=== PATIENT | female | born 1970 | race Caucasian/White ===

== ENCOUNTER 2016-12-03 09:39 | Emergency (ER) | payer MEDICARE, MEDICAID ==
[2016-12-03] MEDS ORDERED: RABIES VACCINE 2.5 UNIT SYRINGE IM ONE ×2 (10:35→10:49)
== END 2016-12-03 11:22 | disposition home or self-care (01) ==
DX: Z23 Encounter for immunization (principal); S60.871D Other superficial bite of right wrist, subsequent encounter; W55.51XD Bitten by raccoon, subsequent encounter

== ENCOUNTER 2016-12-10 22:02 | Emergency (ER) | payer MEDICARE, MEDICAID ==
[2016-12-10 22:19] VITALS: BP 132/85
--- NOTE | 2016-12-10 22:44 | ED Physician Documentation ---
History of Present Illness - Stated complaint Stated Complaint: RABIES SHOT - Chief complaint Chief Complaint: General - History obtained from History obtained from: Patient - History of Present Illness Timing: Other (Bitten by a raccoon on November 25. Seen at [facility] for shots one and 2, did have immunoglobulin with the first. here for the last of the series. 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 - Present Medications Home Medications: Ambulatory Orders Medication Instructions Recorded Confirmed Bupropion HCl [Wellbutrin Sr] 200 mg ORAL BID 12/03/16 12/03/16 Gabapentin 300 mg ORAL TID 12/03/16 12/03/16 Omeprazole 0 mg ORAL DAILY 12/03/16 12/03/16 Ondansetron HCl [Zofran] 4 mg ORAL Q6H PRN 12/03/16 12/03/16 Oxycodone HCl 10 mg ORAL Q4H PRN 12/03/16 12/03/16 Pramipexole Di-HCl [Mirapex] 1 mg ORAL DAILY 12/03/16 12/03/16 Pseudoephedrine [Sudafed] 0 mg ORAL DAILY PRN 12/03/16 12/03/16 Topiramate [Topamax] 400 mg ORAL DAILY 12/03/16 12/03/16 - Allergies Allergies/Adverse Reactions: Allergies Allergy/AdvReac Type Severity Reaction Status Date / Time codeine Allergy Itching Verified 12/03/16 09:46 - Social History Does the pt smoke?: Yes Smoking Status: Current every day smoker Does the pt drink ETOH?: Yes - Immunizations Immunizations are current?: Yes PD ED PE NORMAL - Vitals Vital signs reviewed: Yes - General General: Alert and oriented X 3, No acute distress - Derm Derm: Normal color, Warm and dry - Neuro Neuro: Alert and oriented X 3, Normal speech - Psych Psych: Normal mood, Normal affect Results - Vitals Vitals: Vital Signs - 24 hr 12/10/16 22:11 Temperature 36.7 C Heart Rate 80 Respiratory 22 Rate Blood Pressure 132/85 H O2 Saturation 98 Oxygen O2 Source Room air Departure - Departure Disposition: 01 Home, Self Care Clinical Impression: Encounter for repeat administration of rabies vaccination Condition: Good Record reviewed to determine appropriate education?: Yes Comments: Your blood pressure was elevated today on check in to the emergency department. This does not mean that you have hypertension, it is a common phenomenon to check into the emergency department and have elevated blood pressure. I recommend that you see your primary care physician within the week to have it rechecked when you're feeling better.
[2016-12-10] MEDS ORDERED: RABIES VACCINE 2.5 UNIT SYRINGE IM ONE (22:46)
[2016-12-10] MEDS: RABIES VACCINE 2.5 UNIT SYRINGE IM ONE (22:54)
== END 2016-12-10 23:03 | disposition home or self-care (01) ==
LOC: EDBD → ED 22:02
DX: Z23 Encounter for immunization (principal); Z20.3 Contact with and (suspected) exposure to rabies; M19.90 Unspecified osteoarthritis, unspecified site; F17.200 Nicotine dependence, unspecified, uncomplicated
CPT/HCPCS: 90471; 96372; 99283

== ENCOUNTER 2017-06-18 16:54 | Emergency (ER) | payer MEDICARE, MEDICAID ==
[2017-06-18 17:06] VITALS: BP 115/77
--- NOTE | 2017-06-18 17:06 | ED Physician Documentation ---
PD HPI SKIN - Stated complaint Stated Complaint: FEMALE - Chief complaint Chief Complaint: General - History obtained from History obtained from: Patient - History of Present Illness Timing - onset: Yesterday Timing - duration: Days (1) Timing - details: Abrupt onset Location: Other (left lateral breast just posterior to areola, and she said she had mild green nipple discharge yesterday.) Quality / character: Painful, Discolored (red), Swelling. No: Draining Associated symptoms: Fever (subjective), Myalgias. No: N/V/D Similar symptoms before: Has not had sx before Recently seen: Other (outpatient MRI of right shoulder several days ago, during which she says her left arm was against her breast in order to fit into machine well.) Review of Systems Constitutional: reports: Fever (subjective today), Chills, Myalgias Nose: denies: Congestion Throat: denies: Sore throat Respiratory: denies: Cough GI: denies: Nausea, Vomiting, Diarrhea Skin: reports: Lesions (she has had a few small skin sores the past week or so, resolving on their own, with currently one on wrist and neck.) PD PAST MEDICAL HISTORY - Past Medical History Cardiovascular: None Respiratory: None Endocrine/Autoimmune: None Musculoskeletal: Osteoarthritis - Past Surgical History Past Surgical History: Yes 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, 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 - Present Medications Home Medications: Ambulatory Orders Medication Instructions Recorded Confirmed Bupropion HCl [Wellbutrin Sr] 200 mg ORAL BID 12/03/16 06/18/17 Gabapentin 300 mg ORAL TID 12/03/16 06/18/17 Omeprazole 0 mg ORAL DAILY 12/03/16 06/18/17 Oxycodone HCl 10 mg ORAL Q4H PRN 12/03/16 06/18/17 Pramipexole Di-HCl [Mirapex] 1 mg ORAL DAILY 12/03/16 06/18/17 Pseudoephedrine [Sudafed] 0 mg ORAL DAILY PRN 12/03/16 06/18/17 Topiramate [Topamax] 400 mg ORAL DAILY 12/03/16 06/18/17 Amphetamine Sulfate [Evekeo] 20 mg PO BID 06/18/17 06/18/17 Aspirin 81 mg PO DAILY 06/18/17 06/18/17 Naproxen 375 mg PO BID #15 tablet 06/18/17 Sulfamethox/Trimeth 800/160 1 each PO BID #14 tablet 06/18/17 [Bactrim Ds 800/160] oxyCODONE [Roxicodone] 5 mg PO Q6H PRN #15 tablet 06/18/17 - Allergies Allergies/Adverse Reactions: Allergies Allergy/AdvReac Type Severity Reaction Status Date / Time codeine Allergy Itching Verified 12/03/16 09:46 - Social History Does the pt smoke?: Yes Smoking Status: Current every day smoker Does the pt drink ETOH?: Yes - Immunizations Immunizations are current?: Yes PD ED PE NORMAL - Vitals Vital signs reviewed: Yes - General General: Alert and oriented X 3, Well developed/nourished - HEENT HEENT: Pharynx benign - Neck Neck: Supple, no meningeal sign, No adenopathy - Cardiac Cardiac: RRR, No murmur - Respiratory Respiratory: Clear bilaterally - Abdomen Abdomen: Soft, Non tender - Derm Derm: Normal color, Warm and dry, Other (left lateral breast with area of redness and firmness, tender, but no fluctuance and bedside U/S did not show any fluid collection. No nipple discharge expressed with some palpation. ) Results - Vitals Vitals: Vital Signs - 24 hr 06/18/17 17:00 Temperature 36.7 C Heart Rate 90 Respiratory 18 Rate Blood Pressure 115/77 O2 Saturation 98 Oxygen O2 Source Room air PD MEDICAL DECISION MAKING - ED course Complexity details: considered differential (mastitis, not , but had had arm pressed against breast during recent MRI. US bedside does not show abscess. She has some other small skin abscesses (superficial 1/2 cm) on arm and face, so would target treatment of the mastitis as more likely staph.), d/w patient Departure - Departure Disposition: Home, Self Care Clinical Impression: Mastitis, left, acute Condition: Stable Record reviewed to determine appropriate education?: Yes Instructions: ED Breast Infec Follow-Up: Dave Hickman DO [Primary Care Provider] - Prescriptions: Sulfamethox/Trimeth 800/160 [Bactrim Ds 800/160] 1 each PO BID #14 tablet Naproxen 375 mg PO BID #15 tablet oxyCODONE [Roxicodone] 5 mg PO Q6H PRN #15 tablet PRN Reason: Pain Comments: Warm towels or compresses to the infected area a few times daily. Naproxen twice daily for a week for inflammation. Bactrim twice daily for a week for the infection. Add Tylenol or Percocet as needed for pains. Recheck if not improving well over the next 2-3 days. Discharge Date/Time: 06/18/17 17:52
[2017-06-18] MEDS ORDERED: SULFAMETH/TRIMETH DS 800/160 MG TABLET PO STA (17:29)
[2017-06-18] MEDS ORDERED: oxyCOD/ACETAMIN 5 MG/325 MG TABLET PO STA (17:29)
[2017-06-18] MEDS ORDERED: oxyCOD/ACETAMIN 5 MG/325 MG TABLET PO ONE (17:38)
[2017-06-18] MEDS ORDERED: SULFAMETH/TRIMETH DS 800/160 MG TABLET PO ONE (17:39)
== END 2017-06-18 17:52 | disposition home or self-care (01) ==
LOC: ED 16:54 → EDBD 16:54 → ED 17:52
DX: N61.0 Mastitis without abscess (principal); M19.90 Unspecified osteoarthritis, unspecified site; F17.200 Nicotine dependence, unspecified, uncomplicated
CPT/HCPCS: 99283; A9270

== ENCOUNTER 2017-06-22 15:01 | Emergency (ER) | payer MEDICARE, MEDICAID ==
[2017-06-22] MEDS ORDERED: IBUPROFEN 400 MG TABLET PO STA (16:18)
[2017-06-22] MEDS ORDERED: oxyCOD/ACETAMIN 5 MG/325 MG TABLET PO STA (16:18)
[2017-06-22] MEDS ORDERED: IBUPROFEN 400 MG TABLET PO ONE (16:28)
[2017-06-22] MEDS ORDERED: oxyCOD/ACETAMIN 5 MG/325 MG TABLET PO ONE (16:35)
[2017-06-22] MEDS ORDERED: CEPHALEXIN 250 MG CAPSULE PO STA (16:36)
--- NOTE | 2017-06-22 16:38 | ED Physician Documentation ---
History of Present Illness - Stated complaint Stated Complaint: L BREAST PX - Chief complaint Chief Complaint: General - Additonal information Additional information: hx from pt L breast redness and pain and mass for about 6 days seen in ER for same, bedside sono showed no abscess, rx bactrim as she had other small skin sores suggesting staph not better, redness and pain have increased has not seen PMD for same - has appy 07/06 Dr Hickman + fever last mammo Jun 2016 reportedly nl per pt Review of Systems Constitutional: reports: Fever Cardiac: denies: Chest pain / pressure Respiratory: denies: Dyspnea Endocrine: denies: Easy bruising / bleeding Immunocompromised: denies: Immunocompromised PD PAST MEDICAL HISTORY - Past Medical History Cardiovascular: None Respiratory: None Endocrine/Autoimmune: None Musculoskeletal: Osteoarthritis - Past Surgical History Past Surgical History: Yes 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, 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 - Present Medications Home Medications: Ambulatory Orders Medication Instructions Recorded Confirmed Bupropion HCl [Wellbutrin Sr] 200 mg ORAL BID 12/03/16 06/22/17 Gabapentin 300 mg ORAL TID 12/03/16 06/22/17 Omeprazole 0 mg ORAL DAILY 12/03/16 06/22/17 Pramipexole Di-HCl [Mirapex] 1 mg ORAL DAILY 12/03/16 06/22/17 Pseudoephedrine [Sudafed] 0 mg ORAL DAILY PRN 12/03/16 06/22/17 Topiramate [Topamax] 400 mg ORAL DAILY 12/03/16 06/22/17 Amphetamine Sulfate [Evekeo] 20 mg PO BID 06/18/17 06/22/17 Aspirin 81 mg PO DAILY 06/18/17 06/22/17 Naproxen 375 mg PO BID #15 tablet 06/18/17 06/22/17 Sulfamethox/Trimeth 800/160 1 each PO BID #14 tablet 06/18/17 06/22/17 [Bactrim Ds 800/160] Cephalexin [Keflex] 500 mg PO Q6H #28 capsule 06/22/17 Ibuprofen [Motrin] 400 mg PO Q6H PRN #30 tablet 06/22/17 Oxycodone HCl/Acetaminophen 1 each PO Q6HR PRN #10 tablet 06/22/17 [Percocet 5-325 mg Tablet] - Allergies Allergies/Adverse Reactions: Allergies Allergy/AdvReac Type Severity Reaction Status Date / Time codeine Allergy Itching Verified 12/03/16 09:46 - Social History Does the pt smoke?: Yes Smoking Status: Current every day smoker Does the pt drink ETOH?: Yes - Immunizations Immunizations are current?: Yes PD ED PE NORMAL - Vitals Vital signs reviewed: Yes - Neck Neck: Supple, no meningeal sign - Cardiac Cardiac: RRR - Respiratory Respiratory: No respiratory distress, Clear bilaterally - Free text exam Free text exam: L breast with mass apporx 2 oclock smooth firm tender somehwat mobile approx 2 cm diamteer, marked erythema to lateral aspect of breast, no dc, no sig axillary adenopathy Results - Vitals Vitals: Vital Signs - 24 hr 06/22/17 06/22/17 06/22/17 15:06 16:32 18:16 Temperature 36.8 C Heart Rate 76 70 65 Respiratory 20 17 17 Rate Blood Pressure 119/79 108/62 123/67 O2 Saturation 97 99 95 Oxygen O2 Source Room air - Rads (name of study) breast sono, focused Radiology: See rad report (no abscess) Departure - Departure Disposition: Home, Self Care Clinical Impression: Mastitis Condition: Good Instructions: ED Breast Infec Follow-Up: TAMEKA MONIQUE MD [Provider Admit Priv/Credential] - Prescriptions: Oxycodone HCl/Acetaminophen [Percocet 5-325 mg Tablet] 1 each PO Q6HR PRN #10 tablet PRN Reason: Severe Pain Cephalexin [Keflex] 500 mg PO Q6H #28 capsule Ibuprofen [Motrin] 400 mg PO Q6H PRN #30 tablet PRN Reason: Pain Comments: The ultrasound did not show an abscess You will need to get a mammogram and/or MRI to better address the mass - I have referred you to one of our surgeons for further evaluation of the breast mass Add the antibiotic keflex to the bactrim you are already on - be sure to take a probiotic to prevent diarrhea Motrin for pain, percocet only for severe pain Follow up with your PMD for a recheck Monday If worse over the weekend (more redness or fevers) return to the ER because you may need to be admitted for IV antibiotics Forms: Activity restrictions
[2017-06-22 18:18] VITALS: BP 123/67
--- NOTE | 2017-06-22 18:52 | Ultrasound Preliminary Report ---
Exam: US Breast Unilateral Limited IMPRESSION: Negative study. This limited breast ultrasound was tailored to address the acute clinical issue. Recommend diagnostic follow-up at a designated FDA/SA certified breast imaging facility for more detailed and complete evaluation. [facility] SITE ID: [id number]
--- NOTE | 2017-06-22 18:54 | Ultrasound Report ---
EXAM: Limited Breast Ultrasound EXAM DATE: 06/22/2017 06:15 PM CLINICAL HISTORY: L breast erythema and mass ? abscess. COMPARISON: None. TECHNIQUE: Targeted ultrasound was performed of the left breast in the area of clinical concern at 3 o'clock and 5-15 cm distance from the nipple. Color Doppler was employed as appropriate. FINDINGS: Normal-appearing lymph node at 15 cm. No suspicious fluid collection or mass. No significan tly increased vascularity. IMPRESSION: Negative study. This limited breast ultrasound was tailored to address the acute clinical issue. Recommend diagnostic follow-up at a designated FDA/MQSA certified breast imaging facility for more detailed and complete evaluation. [facility] Referring Provider Line: [phone] SITE ID: [id number]
== END 2017-06-22 18:35 | disposition home or self-care (01) ==
LOC: ED 15:01
DX: N61.0 Mastitis without abscess (principal); F17.200 Nicotine dependence, unspecified, uncomplicated; Z79.82 Long term (current) use of aspirin
CPT/HCPCS: 76642; 99283; A9270

== ENCOUNTER 2017-06-26 22:18 | Emergency (ER) | payer MEDICARE, MEDICAID ==
[2017-06-26] MEDS ORDERED: BUFFERED LIDOCAINE 10 ML SYRINGE ONE (22:52)
[2017-06-26] MEDS ORDERED: IBUPROFEN 800 MG TABLET PO STA (23:06)
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
[2017-06-26] MEDS ORDERED: IBUPROFEN 800 MG TABLET PO ONE (23:13)
[2017-06-26 23:32] VITALS: BP 113/71
== END 2017-06-26 23:26 | disposition home or self-care (01) ==
LOC: ED 22:18
DX: S91.312A Laceration without foreign body, left foot, initial encounter (principal); W26.9XXA Contact with unspecified sharp object(s), initial encounter; M19.90 Unspecified osteoarthritis, unspecified site; F17.200 Nicotine dependence, unspecified, uncomplicated
CPT/HCPCS: 12002; 99283; A9270

== ENCOUNTER 2017-08-09 16:58 | Outpatient (CLI) | payer MEDICARE, MEDICAID ==
--- NOTE | 2017-08-10 09:32 | XRAY Report ---
THREE VIEW LEFT MIDDLE FINGER: 08/09/2017 CLINICAL INDICATION: Deformity. FINDINGS: AP, lateral, and oblique views of the left middle finger demonstrate lateral deviation of the distal phalanx, likely related to a remote fracture of the middle phalanx and angulation of the a rticular surface. There is no evidence of acute fracture or dislocation. Mild osteoarthritic changes are present. IMPRESSION: MILD ULNAR DEVIATION OF THE DISTAL PHALANX OF THE LEFT MIDDLE FINGER, LIKELY RELATED TO A REMOTE, HEALED FRACTURE OF THE MIDDLE PHALANX WITH ANGULATION OF THE ARTICULAR SURFACE. JOB #: [id number] EXT JOB #:[id number]
--- NOTE | 2017-08-10 09:34 | XRAY Report ---
TWO VIEW LEFT FOREARM: 08/09/2017 CLINICAL INDICATION: Contusion. FINDINGS: Frontal and lateral views of the left forearm demonstrate dorsal soft tissue swelling. The re is no evidence of fracture or dislocation. No radiopaque foreign body is seen. IMPRESSION: SOFT TISSUE SWELLING, BUT NO EVIDENCE OF FRACTURE. JOB #: [id number] EXT JOB #:[id number]
== END 2017-08-09 16:59 | disposition home or self-care (01) ==
LOC: DI 16:58
PROVIDERS: ATTEND Family Medicine
DX: S50.12XA Contusion of left forearm, initial encounter (principal); M20.002 Unspecified deformity of left finger(s); M19.042 Primary osteoarthritis, left hand
CPT/HCPCS: 73140

== ENCOUNTER 2017-09-15 10:11 | Outpatient (CLI) | payer MEDICARE, MEDICAID | END 2017-09-15 10:12 | disposition home or self-care (01) | LOC: LAB 10:11 | PROVIDERS: ATTEND Family Medicine | DX: Z11.3 Encounter for screening for infections with a predominantly sexual mode of transmission (principal) | CPT/HCPCS: 36415; 86780; 86803; 87340; G0475; 87389 ==

== ENCOUNTER 2018-02-09 14:33 | Outpatient (CLI) | payer MEDICARE, MEDICAID ==
[2018-02-09 15:00] LABS: BASOPHILS % (AUTO) 0.8 %; EOSINOPHILS # (AUTO) 0.1 10^3/uL (0.0-0.7); EOSINOPHILS % (AUTO) 2.7 %; HGB - HEMOGLOBIN 14.3 g/dL (12.0-16.0); LYMPHOCYTES # (AUTO) 2.6 10^3/uL (1.5-3.5); MEAN CORPUSCULAR HGB CONC 34.3 g/dL (32.0-36.0); MEAN CORPUSCULAR VOLUME 84.8 fL (81.0-99.0); MEAN PLATELET VOLUME 7.2 fL (7.9-10.8); MONOCYTES # (AUTO) 0.4 10^3/uL (0.0-1.0); MONOCYTES % (AUTO) 8.3 %; NEUTROPHILS % (AUTO) 38.2 %; PLT - PLATELET COUNT 258 10^3/uL (130-450); RED BLOOD COUNT 4.91 10^6/uL (4.20-5.40); RED CELL DISTRIBUTION WIDTH 15.9 % (12.0-15.0); WHITE BLOOD COUNT 5.2 x10^3/uL (4.8-10.8)
[2018-02-09 15:17] LABS: CALCIUM 9.7 mg/dL (8.5-10.3); CREATININE 0.4 mg/dL (0.4-1.0)
== END 2018-02-09 14:34 | disposition home or self-care (01) ==
LOC: LAB 14:33
PROVIDERS: ATTEND Orthopaedic Surgery
DX: Z01.818 Encounter for other preprocedural examination (principal); Z01.812 Encounter for preprocedural laboratory examination
CPT/HCPCS: 36415; 80048; 85025; 93005

== ENCOUNTER 2018-03-15 10:28 | Outpatient (CLI) | payer MEDICARE, MEDICAID ==
[2018-03-15] MEDS ORDERED: DOBUTamine 500 MG/250 ML 500 MG/250 ML BAG IV ONE (11:00)
[2018-03-15 17:49] VITALS: BP 110/64
--- NOTE | 2018-03-16 10:52 | CARDIAC PROCEDURE NOTE ---
DATE OF SERVICE: 03/15/2018 Physician: MEHREEN Oneil PRIMARY CARE PHYSICIAN: Dr. Hickman. PROCEDURE: Dobutamine ECHO stress test. PROCEDURE REASON: Abnormal ECG and preop evaluation for intermediate risk orthopedic surgery. CARDIAC RISK FACTORS INCLUDE: Smoker. PREVIOUS CARDIAC PROCEDURES: 05/12/2010, normal adenosine scan with attenuation artifact on the anterior wall with no regional wall abnormality. CURRENT SYMPTOMS: None. CLINICAL HISTORY: A 52-year-old female, sedentary, without known coronary artery disease. INITIAL RESTING VITAL SIGNS: BP 110/64, heart rate 64, height 64 inches, weight 182 pounds, BMI 31.2. MEDICATIONS HELD: Last dose of amphetamine/dextroamphetamine 20 mg approximately 20 hours ago. PROCEDURE AND FINDINGS: Patient identity and date verified. Consent signed after discussion of common side effects and risk. Pharmacologic stress testing was performed with dobutamine. The patient underwent infusion of dobutamine in a stepwise fashion every 3 minutes by 10 mcg/kg/min, starting at 10 mcg/kg/min to a maximum dose of 40 mcg/kg/min (5 minutes). With isometric arm and leg exercises, her heart rate reached 79% of predicted heart rate. No atropine was given. The heart rate was 64 beats per minute, at baseline and increased to 134 beats per minute. Blood pressure maximum was 166/70. The patient developed mild symptoms of pounding heart and dry mouth. The infusion had to be discontinued before target heart rate achieved due to symptoms of anxiety and orthopedic pain and discomfort. The resting ECG demonstrated normal sinus rhythm with no abnormality. Maximum ST-segment depression was less than 0.5 mm and upsloping. She had a total of 16 PVCs. FINAL IMPRESSION 1. Adequate test quality. 2. Negative stress electrocardiogram for ischemia by electrocardiographic criteria. 3. Negative stress test clinically for angina. 4. Rare to occasional isolated PVCs. 5. Await stress echocardiography report. TD: 03/15/2018 22:54 JED
== END 2018-03-15 10:29 | disposition home or self-care (01) ==
LOC: DI 10:28
PROVIDERS: ATTEND Family Medicine
DX: R94.31 Abnormal electrocardiogram [ECG] [EKG] (principal); F17.200 Nicotine dependence, unspecified, uncomplicated
CPT/HCPCS: 93351; J1250

== ENCOUNTER 2018-07-07 14:09 | Outpatient (CLI) | payer MEDICARE, MEDICAID ==
--- NOTE | 2018-07-08 13:16 | MRI Report ---
Procedure Date: 07/07/2018 Accession Number: [id number] / [id number] Procedure: MRI - Shoulder RT W/O CPT Code: FULL RESULT: EXAM: RIGHT SHOULDER MRI WITHOUT CONTRAST EXAM DATE: 07/07/2018 03:02 PM. CLINICAL HISTORY: History of right rotator cuff tear, pain right shoulder. COMPARISON: None. TECHNIQUE: Multiplanar, multisequence T1-weighted and fluid-sensitive sequences of the shoulder without contrast. Other: None. FINDINGS: Acromioclavicular Region: The distal ends of the acromion and clavicle have been partially resected. There is a joint effusion. There are no inferiorly projecting osteophytes. Glenohumeral Region: There is mild glenohumeral osteoarthritis. Motion artifact degrades image quality. Bone Marrow: No fracture, marrow edema or bone lesions. Labrum: The labrum in the posteroinferior quadrant has lost its normal configuration. Fluid is seen within the labrum which appears truncated. The findings suggest a posteroinferior labral tear. The superior and anterior labrum appear normal. Musculature/Rotator Cuff: There is a 9 x 11 mm full-thickness tear of the musculotendinous junction of supraspinatus. There is a low-grade partial-thickness tear of the remainder of the tendon. There is minimal atrophy. Infraspinatus and subscapularis appear unremarkable. Biceps Tendon: Thickening and increased T2 signal in the proximal long head of biceps consistent with tendinosis. No appreciable biceps tendon tear. Other: There is a suture anchor measuring 4 x 12 x 3 mm in the lateral aspect of the suprapatellar bursa. There is a screw tract through the greater tuberosity. IMPRESSION: 1. Loose suture anchor in subdeltoid bursa. 2. High-grade partial-thickness tear supraspinatus with a large full-thickness component. 3. Infraspinatus and subscapularis are intact. 4. Mild glenohumeral osteoarthritis. 5. Posteroinferior labral tear. 6. Postoperative change in the acromioclavicular joint. [facility] MUSCULOSKELETAL [facility]IOLOGY SECTION
== END 2018-07-07 14:10 | disposition home or self-care (01) ==
LOC: DI 14:09
PROVIDERS: ATTEND Family Medicine
DX: M75.101 Unspecified rotator cuff tear or rupture of right shoulder, not specified as traumatic (principal); S43.491A Other sprain of right shoulder joint, initial encounter; M19.011 Primary osteoarthritis, right shoulder